=== PATIENT | male | born 1985 | race Caucasian/White ===

== ENCOUNTER 2017-01-17 21:12 | Emergency (ER) | payer SELFPAY ==
[2017-01-17 22:08] LABS: Basophils % (Auto) 0.7 % (0.0-1.8); Eosinophils % (Auto) 1.7 % (0.0-4.3); Hematocrit 42.5 % (35.5-45.6); Hemoglobin 14.5 gm/dl (11.8-15.2); Mean Corpuscular HGB Conc 34 % (32-34); Mean Corpuscular Hemoglobin 31 pg (28-32); Mean Corpuscular Volume 90 fl (84-94); Platelet Count 192 K/mm3 (140-440); Red Blood Count 4.74 M/mm3 (3.65-5.03); Red Cell Distribution Width 12.8 % (13.2-15.2); White Blood Count 6.7 K/mm3 (4.5-11.0)
[2017-01-17 22:27] LABS: Anion Gap 20 mmol/L; BUN/Creatinine Ratio 19.09; Blood Urea Nitrogen 21 mg/dL (9-20); Calcium 9.3 mg/dL (8.4-10.2); Carbon Dioxide 26 mmol/L (22-30); Chloride 98.9 mmol/L (98-107); Glucose 107 mg/dL (75-100); Potassium 3.8 mmol/L (3.6-5.0); Sodium 141 mmol/L (137-145)
[2017-01-17 22:28] LABS: INR 0.96 (0.87-1.13); Partial Thromboplastin Time 29.4 Sec. (24.2-36.6)
--- NOTE | 2017-01-18 03:38 | Emergency Department Report ---
ED General Adult HPI - General Chief complaint: Chest Pain Stated complaint: CHEST PAIN Time Seen by Provider: 01/18/17 03:23 Source: patient, RN notes reviewed Mode of arrival: Ambulatory Limitations: No Limitations - History of Present Illness Initial comments: This is a 31-year-old male, he is previously known to me. He does not have a primary care doctor, he does not have any chronic medical conditions. The patient is a traveler from [place]. The patient presents to the ER with complaint of left-sided chest pressure and discomfort. The pain started 2 weeks ago, and is waxing and waning. The pain does not radiate to the back, arms or neck. There is no nausea, vomiting or diaphoresis. There is no severe shortness of breath. The patient reports that he does not use drugs, he does not smoke, he does not use cocaine, and he runs 12 km on a regular basis. No family history of heart disease that he is aware of. There is no posterior leg pain, there is no posterior leg swelling. There is no hematemesis or bright red blood per rectum. The patient also complains of headache. The headache is throbbing and global. He gets around 10 headaches per year, this headache is not sudden or thunderclap in nature, and it is not the worst headache of his life. It did not reach maximal intensity within an hour, and it has since resolved. There is no neck pain. There is no weakness. There is no numbness. The patient reports that he got quite panicked. The patient further reports that he does not need pain medication at this time. -: Gradual Location: head, chest Severity scale (0 -10): 5 Quality: aching Consistency: intermittent Improves with: none Worsens with: none Associated Symptoms: chest pain, headaches, weakness. denies: confusion, cough , diaphoresis, fever/chills, loss of appetite, malaise, nausea/vomiting, syncope - Related Data Allergies Allergy/AdvReac Type Severity Reaction Status Date / Time No Known Allergies Allergy Verified 01/17/17 21:43 ED Review of Systems ROS: Stated complaint: CHEST PAIN Other details as noted in HPI Constitutional: malaise, weakness. denies: fever Eyes: denies: vision change ENT: denies: epistaxis Respiratory: denies: cough Cardiovascular: chest pain Gastrointestinal: denies: abdominal pain Genitourinary: denies: dysuria Musculoskeletal: denies: back pain Skin: denies: lesions Neurological: headache Psychiatric: anxiety ED Past Medical Hx - Past Medical History Previous Medical History?: No - Surgical History Past Surgical History?: No - Social History Smoking Status: Never Smoker Substance Use Type: Alcohol ED Physical Exam - General Limitations: No Limitations General appearance: alert, in no apparent distress - Head Head exam: Present: atraumatic, normocephalic - Eye Eye exam: Present: normal appearance, PERRL, EOMI, other (Extraocular movements intact. Tongue midline. No facial droop. Facial sensation intact to light touch in the V1, V2, V3 distribution bilaterally. 5 and 5 strength in 4 extremities.. Sensation is intact to light touch in 4 extremities.). Absent: nystagmus - ENT ENT exam: Present: normal exam, normal orophraynx, mucous membranes moist, normal external ear exam - Neck Neck exam: Present: normal inspection, full ROM. Absent: tenderness, meningismus - Respiratory Respiratory exam: Present: normal lung sounds bilaterally. Absent: respiratory distress, wheezes, rales, rhonchi, stridor, chest wall tenderness - Cardiovascular Cardiovascular Exam: Present: regular rate, normal rhythm, normal heart sounds. Absent: bradycardia, tachycardia, irregular rhythm, systolic murmur, diastolic murmur, rubs, gallop - GI/Abdominal GI/Abdominal exam: Present: soft, normal bowel sounds. Absent: distended, tenderness, guarding, rebound, rigid, pulsatile mass - Rectal Rectal exam: Present: deferred - Extremities Exam Extremities exam: Present: normal inspection, full ROM, normal capillary refill. Absent: tenderness, pedal edema, joint swelling, calf tenderness - Back Exam Back exam: Present: normal inspection, full ROM. Absent: tenderness, CVA tenderness (R), CVA tenderness (L), muscle spasm, paraspinal tenderness, vertebral tenderness - Neurological Exam Neurological exam: Present: alert, oriented X3, normal gait, other (Extraocular movements intact. Tongue midline. No facial droop. Facial sensation intact to light touch in the V1, V2, V3 distribution bilaterally. 5 and 5 strength in 4 extremities.. Sensation is intact to light touch in 4 extremities.). Absent : motor sensory deficit - Psychiatric Psychiatric exam: Present: anxious. Absent: homicidal ideation, suicidal ideation - Skin Skin exam: Present: warm, dry, intact, normal color. Absent: rash ED Course Vital Signs 01/17/17 01/18/17 01/18/17 21:44 01:48 02:00 Temperature 98.5 F Pulse Rate 64 70 60 Respiratory 20 18 Rate Blood Pressure 150/91 131/81 O2 Sat by Pulse 97 97 99 Oximetry ED Medical Decision Making - Lab Data Result diagrams: 01/17/17 21:57 01/17/17 21:57 Vital Signs 01/17/17 01/18/17 01/18/17 21:44 01:48 02:00 Temperature 98.5 F Pulse Rate 64 70 60 Respiratory 20 18 Rate Blood Pressure 150/91 131/81 O2 Sat by Pulse 97 97 99 Oximetry Lab Results 01/17/17 01/17/17 01/17/17 Range/Units 21:57 21:57 21:57 WBC 6.7 (4.5-11.0) K/mm3 RBC 4.74 (3.65-5.03) M/mm3 Hgb 14.5 (11.8-15.2) gm/dl Hct 42.5 (35.5-45.6) % MCV 90 (84-94) fl MCH 31 (28-32) pg MCHC 34 (32-34) % RDW 12.8 L (13.2-15.2) % Plt Count 192 (140-440) K/mm3 Lymph % (Auto) 21.6 (13.4-35.0) % [place] % (Auto) 9.8 H (0.0-7.3) % Eos % (Auto) 1.7 (0.0-4.3) % Baso % (Auto) 0.7 (0.0-1.8) % Lymph # 1.4 (1.2-5.4) K/mm3 [place] # 0.7 (0.0-0.8) K/mm3 Eos # 0.1 (0.0-0.4) K/mm3 Baso # 0.0 (0.0-0.1) K/mm3 Seg Neutrophils % 66.2 (40.0-70.0) % Seg Neutrophils # 4.4 (1.8-7.7) K/mm3 PT 13.3 (12.2-14.9) Sec. INR 0.96 (0.87-1.13) APTT 29.4 (24.2-36.6) Sec. D-Dimer (0-234) ng/mlDDU Sodium 141 (137-145) mmol/L Potassium 3.8 (3.6-5.0) mmol/L Chloride 98.9 (98-107) mmol/L Carbon Dioxide 26 (22-30) mmol/L Anion Gap 20 mmol/L BUN 21 H (9-20) mg/dL Creatinine 1.1 (0.8-1.5) mg/dL Estimated GFR > 60 ml/min BUN/Creatinine Ratio 19.09 % Glucose 107 H (75-100) mg/dL Calcium 9.3 (8.4-10.2) mg/dL Troponin T < 0.010 (0.00-0.029) ng/mL 01/18/17 01/18/17 Range/Units 00:36 02:33 WBC (4.5-11.0) K/mm3 RBC (3.65-5.03) M/mm3 Hgb (11.8-15.2) gm/dl Hct (35.5-45.6) % MCV (84-94) fl MCH (28-32) pg MCHC (32-34) % RDW (13.2-15.2) % Plt Count (140-440) K/mm3 Lymph % (Auto) (13.4-35.0) % [place] % (Auto) (0.0-7.3) % Eos % (Auto) (0.0-4.3) % Baso % (Auto) (0.0-1.8) % Lymph # (1.2-5.4) K/mm3 [place] # (0.0-0.8) K/mm3 Eos # (0.0-0.4) K/mm3 Baso # (0.0-0.1) K/mm3 Seg Neutrophils % (40.0-70.0) % Seg Neutrophils # (1.8-7.7) K/mm3 PT (12.2-14.9) Sec. INR (0.87-1.13) APTT (24.2-36.6) Sec. D-Dimer < 135 (0-234) ng/mlDDU Sodium (137-145) mmol/L Potassium (3.6-5.0) mmol/L Chloride (98-107) mmol/L Carbon Dioxide (22-30) mmol/L Anion Gap mmol/L BUN (9-20) mg/dL Creatinine (0.8-1.5) mg/dL Estimated GFR ml/min BUN/Creatinine Ratio % Glucose (75-100) mg/dL Calcium (8.4-10.2) mg/dL Troponin T < 0.010 (0.00-0.029) ng/mL - EKG Data -: EKG Interpreted by Me EKG shows normal: sinus rhythm - EKG Data 01/18/17 04:11 EKG #1 demonstrates normal sinus, 75 bpm, normal intervals, normal axis, high left ventricular voltage, not morphologically consistent with STEMI, Repeat EKG unchanged. - Radiology Data Radiology results: image reviewed interpreted by me: X-ray the chest is negative - Medical Decision Making Differential diagnosis: Migraine headache, tension headache, cluster headache, anxiety, panic, costochondritis, acute coronary syndrome, pneumonia, pulmonary embolus, myocarditis, pericarditis, hemothorax, pneumothorax Assessment and plan: 31-year-old male who is low risk by BABAK score, low risk by heart score, low risk by well's criteria, negative d-dimer,, perc negative, EKG unremarkable 2, troponin negative 2, walks with a steady gait, GCS of 15, with NIH score of 0. Patient is suitable to follow up as an outpatient with either a local primary care doctor or production material coordinator. Given all of the aforementioned, the patient is at low risk for major adverse cardiac event, and is suitable to follow up. He declined pain medication. Critical care attestation.: If time is entered above; I have spent that time in minutes in the direct care of this critically ill patient, excluding procedure time. ED Disposition Clinical Impression: Chest pain, Headache Disposition: - TO HOME OR SELFCARE Is pt being admited?: No Does the pt Need Aspirin: No Condition: Stable Additional Instructions: Follow up with a primary care doctor or production material coordinator within the next 3-5 days. Take acetaminophen [id number], 650 mg as needed for pain, this can be alternated with ibuprofen, 600 mg with food every 6 hours as needed for pain. Return to the ER right away with new pain, worse pain, migration of pain, fevers , chills, confusion, intractable nausea or vomiting, inability to tolerate liquid feeds, severe shortness of breath. Referrals: PRIMARY CARE, [Primary Care Provider] - 3-5 Days LEXIE NI MD [Staff Physician] - 3-5 Days ED HENRY MD [Staff Physician] - 3-5 Days MARIAN GARZA MD [Staff Physician] - 3-5 Days
[2017-01-18 04:24] VITALS: BP 128/76
--- NOTE | 2017-01-18 07:26 | XRay Report ---
ROUTINE CHEST, TWO VIEWS: HISTORY: chest pain. The trachea, heart, mediastinal contour, lung bean and bony thorax are unremarkable. IMPRESSION: Unremarkable chest x-ray.
== END 2017-01-18 04:32 | disposition home or self-care (01) ==
LOC: ED 21:12
DX: R07.9 Chest pain, unspecified (principal); R51 Headache
CPT/HCPCS: 36415; 71020; 80048; 84484; 85025; 85379; 85610; 85730; 93005; 93010